=== PATIENT | female | born 1990 | race Native Hawaiian/Other Pacific Islander ===

== ENCOUNTER 2017-05-30 19:47 | Emergency (ER) | payer SELFPAY ==
[2017-05-30 20:11] VITALS: BP 137/87; PULSE 70; RESP 16; TEMP 98.4; O2SAT 100
[2017-05-30] MEDS ORDERED: Lactated Ringer's 1,000 ML IV STA (20:33)
[2017-05-30 21:28] LABS: BASO % 0.5 % (0.0-2.0); EOS # 0.1 K/uL (0.0-0.7); HEMOGLOBIN 12.5 g/dL (12.0-16.0); LYMPH # 2.3 K/uL (1.0-4.3); LYMPH % 28.6 % (20.0-40.0); MEAN CELL VOLUME 88.5 fl (81.0-99.0); MEAN CORPUSCULAR HGB CONC 33.9 g/dL (33.0-37.0); MEAN PLATELET VOLUME 9.5 fl (7.2-11.7); MONO # 0.6 K/uL (0.0-0.8); MONO % 7.4 % (0.0-10.0); NEUT % 62.5 % (50.0-75.0); NRBC % 0.1 % (0.0-0.0); RBC 4.17 Mil/uL (3.80-5.20); RED CELL DISTRIBUTION WIDTH 13.4 % (11.5-14.5)
[2017-05-30 21:36] LABS: PARTIAL THROMBOPLASTIN TIME 36.2 Seconds (25.6-37.1); PROTHROMBIN TIME 10.9 Seconds (9.8-13.1)
[2017-05-30 21:37] LABS: SQUAMOUS EPITHIAL 1 /hpf (0-5); URINE BILIRUBIN NEGATIVE (NEGATIVE); URINE BLOOD NEGATIVE (NEGATIVE); URINE CLARITY SLIGHTY-CLOUDY (Clear); URINE COLOR YELLOW (YELLOW); URINE GLUCOSE (UA) NEG (Normal); URINE LEUKOCYTE ESTERASE NEG Leu/uL (Negative); URINE PROTEIN NEGATIVE (NEGATIVE); URINE UROBILINOGEN 0.2-1.0 mg/dL (0.2-1.0)
[2017-05-30 21:38] LABS: ALB/GLOB RATIO 1.3 (1.0-2.1); ALBUMIN 4.1 g/dL (3.5-5.0); ALT/SGPT 26 U/L (9-52); AST/SGOT 25 U/L (14-36); BLOOD UREA NITROGEN 14 mg/dl (7-17); CALCIUM 9.3 mg/dL (8.4-10.2); GFR AFRICAN-AMERICAN > 60; GFR NON-AFRICAN AMERICAN > 60
--- NOTE | 2017-05-30 22:23 | ED PDOC ---
HPI: Abdomen Time Seen by Provider: 05/30/17 20:13 Chief Complaint (Nursing): Abdominal Pain Chief Complaint (Provider): Abdominal Pain History Per: Patient History/Exam Limitations: no limitations Onset/Duration Of Symptoms: Worse Since (today), Other (x2 weeks) Current Symptoms Are (Timing): Still Present Location Of Pain/Discomfort: Other (right sided pelvic pain) Associated Symptoms: denies: Nausea, Vomiting, Diarrhea, Constipation, Urinary Symptoms Additional Complaint(s): 27 year old female presents to ED with complaints of abdominal pain x2 weeks that worsened significantly today and has no past medical history. Localizes pain to the right sided pelvic area, radiating to the back. Notes pain worsens with waling or when pressure is applied. (-) nausea, vomiting, diarrhea, constipation, dysuria, hematuria, frequency, vaginal bleeding/discharge, fever, chills, or decreased appetite. Denies taking any medication for pain and notes LNMP at the end of April 2017. PCP: none Abnormal Vaginal Bleeding: No Past Medical History Reviewed: Historical Data, Nursing Documentation, Vital Signs Vital Signs: Last Vital Signs Temp 98.4 F 05/30/17 20:07 Pulse 70 05/30/17 20:07 Resp 16 05/30/17 20:07 BP 137/87 05/30/17 20:07 Pulse Ox 100 05/30/17 22:27 - Medical History PMH: No Chronic Diseases - Surgical History Surgical History: No Surg Hx - Family History Family History: States: No Known Family Hx - Social History Current smoker - smoking cessation education provided: Yes (social smoker) Alcohol: Social Drugs: Denies - Home Medications Home Medications: Ambulatory Orders Medication Instructions Recorded Ibuprofen [Motrin Tab] 600 mg PO Q8 PRN #60 tab 05/30/17 - Allergies Allergies/Adverse Reactions: Allergies Allergy/AdvReac Type Severity Reaction Status Date / Time No Known Allergies Allergy Verified 05/30/17 20:11 Review of Systems ROS Statement: Except As Marked, All Systems Reviewed And Found Negative Constitutional: Negative for: Fever, Chills Gastrointestinal: Positive for: Abdominal Pain. Negative for: Nausea, Vomiting , Diarrhea, Constipation, Other ((-) decreased appetite) Genitourinary Female: Negative for: Dysuria, Frequency, Hematuria, Vaginal Discharge, Vaginal Bleeding Musculoskeletal: Positive for: Back Pain (pain radiates to back) Physical Exam - Reviewed Nursing Documentation Reviewed: Yes Vital Signs Reviewed: Yes - Physical Exam Appears: Positive for: Non-toxic, Uncomfortable, In Acute Distress (moderate painful distress) Head Exam: Positive for: ATRAUMATIC, NORMOCEPHALIC Skin: Positive for: Warm, Dry Neck: Positive for: Supple. Negative for: Decreased ROM Respiratory: Positive for: Normal Breath Sounds. Negative for: Respiratory Distress Gastrointestinal/Abdominal: Positive for: Soft, Tenderness (tenderness to RLQ and suprapubic area). Negative for: Mass, Guarding, Rebound, Other (psoas, obturator, or rovsing signs) Back: Positive for: Normal Inspection. Negative for: L CVA Tenderness, R CVA Tenderness, Vertebral Tenderness Extremity: Positive for: Normal ROM. Negative for: Deformity Lymphatic: Negative for: Adenopathy Neurologic/Psych: Positive for: Alert. Negative for: Motor/Sensory Deficits - Laboratory Results Result Diagrams: 05/30/17 21:24 05/30/17 21:24 - ECG O2 Sat by Pulse Oximetry: 100 (RA) Pulse Ox Interpretation: Normal Medical Decision Making Medical Decision Makin Initial impression: right pelvic and RLQ pain DDx including but not limited to: ovarian cyst or torsion, TOA, renal colic, cystitis, UTI. Appendicitis considered due to location of pain, however, timeline of illness and lack of associated GI symptoms (no loss of appetite, no fever) do not coincide with acute appendicitis. Initial plan: * Labs * UDip * PTT/PT * Chlamydia GC RNA, TMA * Lactated Ringers IV * Morphine 2mg IVP * Toradol 15mg IVP * UCx * UA * US PELVIS * Re-eval No clinically significant lab abnormalities. US demonstrates follicular RIGHT ovary. No acute abnormalities. On reevaluation pt feels better. Eager to be discharged. Scribe Attestation: Documented by Brunilda Langley acting as a scribe Kenzie Wu MD. Scribe Attestation: All medical record entries made by the Scribe were at my direction and personally dictated by me. I have reviewed the chart and agree that the record accurately reflects my personal performance of the history, physical exam, medical decision making, and the department course for this patient. I have also personally directed, reviewed, and agree with the discharge instructions and disposition. Disposition - Clinical Impression Clinical Impression: Abdominal pain, Ovarian cyst - Disposition Referrals: [facility] [Outside] (FOLLOW UP NEXT WEEK FOR REEVALUATION) Disposition: Routine/Home Disposition Time: 23:00 Condition: IMPROVED Prescriptions: Ibuprofen [Motrin Tab] 600 mg PO Q8 PRN #60 tab PRN Reason: Pain, Moderate (4-7) Instructions: Acute Abdomen (Belly Pain), Adult (DC), Ovarian Cyst (DC) Forms: [employer] ([place])
--- NOTE | 2017-05-30 23:03 | US ---
EXAM: US Pelvis Complete, Transabdominal US Duplex Arterial/Venous of the Pelvis, Complete EXAM DATE/TIME: 05/30/2017 8:29 PM CLINICAL HISTORY: 27 years old, female; Pain; Pelvic pain; Additional info: Severe pelvic pain R/O torsion/cyst/rupture; LMP 05/20/17 TECHNIQUE: Real-time transabdominal pelvic ultrasound (complete) with image documentation. Real-time duplex ultrasound scan of the arterial and venous flow of the pelvis with color Doppler flow and spectral waveform analysis. COMPARISON: There are no prior studies for comparison. FINDINGS: Uterus: Uterus is flexed. Uterus measures approximately 7.7 x 3 x 4.8 cm. endometrium measures approximately 8 mm in width. Right Right ovary: Right ovary measures approximately 2.9 x 2.4 x 2.5 cm.There are multiple small follicles. There is intraovarian blood flow. Left ovary: Left ovary measures approximately 2.3 x 1.7 x 2 cm.There is expected blood flow on Doppler imaging Free fluid: There is no free fluid. Bladder: Bladder is incompletely distended. IMPRESSION: Normal pelvic ultrasound
== END 2017-05-30 23:42 | disposition home or self-care (01) ==
LOC: H.ER 19:47
DX: N83.201 Unspecified ovarian cyst, right side (principal); F17.200 Nicotine dependence, unspecified, uncomplicated
CPT/HCPCS: 76856; 80053; 81003; 85025; 85610; 85730; 87086; 87491; 87591; 96361; 96374; 99282; J1885; J7120